=== PATIENT | female | born 2000 | race Caucasian/White ===

== ENCOUNTER 2022-04-07 16:56 | Emergency (ER) | payer OTHER ==
[~2022-04-07] VITALS: Ht 149.9 cm; Wt 127.0 kg
[2022-04-07 17:53] VITALS: BP 154/75
[2022-04-07] MEDS ORDERED: ACETAMINOPHEN EXTRA STRENGTH 500 MG TAB PO ONE (18:00)
--- NOTE | 2022-04-07 18:02 | NUR ---
COVID, FLU SWABS DONE.
--- NOTE | 2022-04-07 19:33 | NUR ---
PATIENT LEFT WITHOUT BEING SEEN BY DR. Ruelas. NO FURTHER CARE PROVIDED FOR PATIENT.
== END 2022-04-07 19:33 | disposition left against medical advice (07) ==
LOC: MED 16:56
DX: R50.9 Fever, unspecified (principal); Z20.822 Contact with and (suspected) exposure to COVID-19; J02.9 Acute pharyngitis, unspecified; R06.02 Shortness of breath; R11.2 Nausea with vomiting, unspecified; R42 Dizziness and giddiness; Z53.21 Procedure and treatment not carried out due to patient leaving prior to being seen by health care provider